=== PATIENT | female | born 1960 | race Caucasian/White ===

== ENCOUNTER → 2016-08-25 | Outpatient (CLI) | payer OTHER | LOC: WI 06:52 | PROVIDERS: ATTEND Physician Assistant | DX: B19.20 Unspecified viral hepatitis C without hepatic coma (principal); Z90.49 Acquired absence of other specified parts of digestive tract | CPT/HCPCS: 76705 ==

== ENCOUNTER 2016-12-27 01:32 | Emergency (ER) | payer OTHER ==
[2016-12-27 02:44] LABS: APPEARANCE,URINE CLEAR; BILIRUBIN,URINE NEGATIVE (NEGATIVE); GLUCOSE, URINE NEGATIVE (NEGATIVE); KETONES,URINE NEGATIVE (NEGATIVE); LEUKOCYTE ESTERASE,URINE MODERATE (NEGATIVE); NITRITE,URINE NEGATIVE (NEGATIVE); PROTEIN,URINE NEGATIVE (NEGATIVE); URINE SPECIFIC GRAVITY 1.002; UROBILINOGEN,URINE NEGATIVE mg/dL (<2.0)
[2016-12-27 02:56] LABS: URINE BARBITURATES SCREEN NEGATIVE; URINE METHADONE SCREEN NEGATIVE; URINE OPIATES LOW NEGATIVE; URINE PHENCYCLIDINE SCREEN NEGATIVE
[2016-12-27 03:32] LABS: ALANINE AMINOTRANSFERASE 45 U/L (9-52); ALBUMIN 3.8 g/dL (3.5-5.0); ALKALINE PHOSPHATASE 53 U/L (38-126); ANION GAP 8 (5-19); ASPARTATE AMINO TRANSFERASE 53 U/L (14-36); BILIRUBIN,DIRECT 0.3 mg/dL (0.0-0.4); BILIRUBIN,TOTAL 1.3 mg/dL (0.2-1.3); BLOOD UREA NITROGEN 11 mg/dL (7-20); CALCIUM 9.2 mg/dL (8.4-10.2); CARBON DIOXIDE 25 mmol/L (22-30); CHLORIDE 110 mmol/L (98-107); CREATININE RESULT 0.81 mg/dL (0.52-1.25); GLUCOSE 95 mg/dL (75-110); POTASSIUM 4.4 mmol/L (3.6-5.0); SODIUM 143.4 mmol/L (137-145); TOTAL PROTEIN 6.7 g/dL (6.3-8.2)
[2016-12-27 03:34] LABS: ALCOHOL < 10 mg/dL (NONE DETECTED)
[2016-12-27] MEDS ORDERED: ACETAMINOPHEN 325 MG TABLET PO ONE (04:12)
[2016-12-27 05:16] LABS: ABSOLUTE EOSINOPHILS # (AUTO) 0.1 10^3/uL (0.0-0.6); ABSOLUTE LYMPHOCYTES (AUTO) 0.6 10^3/uL (0.5-4.7); ABSOLUTE MONOCYTES (AUTO) 0.3 10^3/uL (0.1-1.4); ABSOLUTE NEUT (AUTO) 1.6 10^3/uL (1.7-8.2); BASOPHILS % (AUTO) 0.7 % (0-2); EOSINOPHILS % (AUTO) 4.1 % (0-6); HEMATOCRIT 36.1 % (36.0-47.0); HGB HCT DIFFERENCE -0.1; LYMPHOCYTES % (AUTO) 23.1 % (13-45); MEAN CORPUSCULAR HEMOGLOBIN 28.3 pg (27.0-33.4); MEAN CORPUSCULAR HGB CONC 33.1 g/dL (32.0-36.0); MEAN CORPUSCULAR VOLUME 86 fl (80-97); MONOCYTES % (AUTO) 11.6 % (3-13); RED BLOOD COUNT 4.23 10^6/uL (3.72-5.28); RED CELL DISTRIBUTION WIDTH 16.4 % (11.5-14.0); SEGMENTED NEUTROPHILS % (AUTO) 60.5 % (42-78); WHITE BLOOD COUNT 2.7 10^3/uL (4.0-10.5)
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
--- NOTE | 2016-12-27 08:26 | EKG REPORT ---
SEVERITY:- ABNORMAL ECG - SINUS RHYTHM FIRST DEGREE AV BLOCK : Confirmed by: Fito Hawkins MD 27-Dec-2016 08:25:31
[2016-12-27] MEDS ORDERED: ACETAMINOPHEN 325 MG TABLET PO PRN (10:35)
--- NOTE | 2016-12-27 10:36 | ER Document Report ---
Doctor's Note Notes: 12/27/16 10:35 I have evaluated this patient this am and has no c/o at this time other than chronic leg pain from varicose veins. She is requesting Tylenol. Feels all of their needs are being met and physical exam is normal. Awaiting dispositon per mental health. 12/27/16 16:36 Pt will be transfered to [facility] under Dr. Christianson's care. Pt stable for transfer.
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
[2016-12-27] MEDS ORDERED: OLANZAPINE 5 MG TABLET PO SCH (14:45)
[2016-12-27 21:47] VITALS: BP 167/89
[2016-12-27] MEDS ORDERED: QUETIAPINE FUMARATE 100 MG TABLET PO SCH (22:00)
[2016-12-27] MEDS ORDERED: BENZTROPINE MESYLATE 1 MG TABLET PO SCH (22:00)
== END 2016-12-27 17:23 ==
LOC: ER 01:32
DX: F91.9 Conduct disorder, unspecified (principal); R44.3 Hallucinations, unspecified; F20.9 Schizophrenia, unspecified; R03.0 Elevated blood-pressure reading, without diagnosis of hypertension; Z87.891 Personal history of nicotine dependence; Z90.49 Acquired absence of other specified parts of digestive tract; Z90.710 Acquired absence of both cervix and uterus; Z88.0 Allergy status to penicillin
CPT/HCPCS: 36415; 80053; 80307; 81001; 85025; 87086; 87088; 87186; 93005; 93010; 99285

== ENCOUNTER 2017-06-29 19:09 | Emergency (ER) | payer OTHER ==
--- NOTE | 2017-06-29 20:25 | ER Document Report ---
ED Medical Screen (RME) - General Chief Complaint: Abnormal Lab Results Stated Complaint: IRREGULAR LABS Time Seen by Provider: 06/29/17 20:24 Notes: Patient presents stating that she has had problems the last several months with fatigue. She has recently been diagnosed with splenomegaly. She states yesterday she had some blood drawn and they called her today and told her that her platelets were very low and she needed to go to the emergency department. TRAVEL OUTSIDE OF THE [place] IN LAST 30 DAYS: No - Related Data Allergies/Adverse Reactions: cephalexin monohydrate [From [employer]] Allergy (Mild, Verified 06/29/17 19:11) Penicillins Allergy (Mild, Verified 06/29/17 19:11) Home Medications: Current Home Medications Diphenhydramine HCl [Benadryl 50 mg Capsule] 50 mg PO DAILY 06/29/17 [History] Trazodone HCl 50 mg PO DAILY 06/29/17 [History] Past Medical History - Social History Chew tobacco use (# tins/day): No Frequency of alcohol use: Occasional Drug Abuse: None - Past Medical History Cardiac Medical History: Reports: Hx Hypertension - Borderline Endocrine Medical History: Reports: Hx Diabetes Mellitus Type 2 - Borderline Renal/ Medical History: Denies: Hx Peritoneal Dialysis Past Surgical History: Reports: Hx Cholecystectomy, Hx Hysterectomy, Hx Orthopedic Surgery - Immunizations Hx Diphtheria, Pertussis, Tetanus Vaccination: No Physical Exam - Vital signs Vitals: Temp Pulse Resp BP Pulse Ox 97.4 F 74 19 158/89 H 99 06/29/17 19:16 06/29/17 19:16 06/29/17 19:16 06/29/17 19:16 06/29/17 19:16 Course - Vital Signs Vital signs: Temp Pulse Resp BP Pulse Ox 97.4 F 74 19 158/89 H 99 06/29/17 19:16 06/29/17 19:16 06/29/17 19:16 06/29/17 19:16 06/29/17 19:16
[2017-06-29 20:57] LABS: ABSOLUTE EOSINOPHILS # (AUTO) 0.1 10^3/uL (0.0-0.6); ABSOLUTE LYMPHOCYTES (AUTO) 0.4 10^3/uL (0.5-4.7); ABSOLUTE MONOCYTES (AUTO) 0.3 10^3/uL (0.1-1.4); ABSOLUTE NEUT (AUTO) 1.3 10^3/uL (1.7-8.2); BASOPHILS % (AUTO) 1.2 % (0-2); EOSINOPHILS % (AUTO) 3.9 % (0-6); HEMATOCRIT 38.4 % (36.0-47.0); HEMOGLOBIN 12.9 g/dL (12.0-15.5); MEAN CORPUSCULAR HEMOGLOBIN 28.7 pg (27.0-33.4); MEAN CORPUSCULAR HGB CONC 33.6 g/dL (32.0-36.0); MEAN CORPUSCULAR VOLUME 85 fl (80-97); RED CELL DISTRIBUTION WIDTH 16.5 % (11.5-14.0); SEGMENTED NEUTROPHILS % (AUTO) 61.9 % (42-78); TOTAL CELLS COUNTED % (AUTO) 100 %; WHITE BLOOD COUNT 2.1 10^3/uL (4.0-10.5)
[2017-06-29 21:08] LABS: ALANINE AMINOTRANSFERASE 40 U/L (9-52); ALKALINE PHOSPHATASE 48 U/L (38-126); ANION GAP 8 (5-19); ASPARTATE AMINO TRANSFERASE 42 U/L (14-36); BILIRUBIN,DIRECT 0.2 mg/dL (0.0-0.4); BILIRUBIN,TOTAL 0.9 mg/dL (0.2-1.3); BLOOD UREA NITROGEN 16 mg/dL (7-20); CALCIUM 9.5 mg/dL (8.4-10.2); CARBON DIOXIDE 29 mmol/L (22-30); CHLORIDE 106 mmol/L (98-107); GLUCOSE 122 mg/dL (75-110); SODIUM 142.9 mmol/L (137-145); TOTAL PROTEIN 6.7 g/dL (6.3-8.2)
[2017-06-29 21:29] LABS: PLATELET COUNT 44 10^3/uL (150-450)
--- NOTE | 2017-06-29 22:49 | ER Document Report ---
ED General - General Chief Complaint: Abnormal Lab Results Stated Complaint: IRREGULAR LABS Time Seen by Provider: 06/29/17 20:24 Notes: The patient is a 57-year-old female, past medical history viral hepatitis, prior thrombocytopenia, presents after her new primary care physician karlo blood work for evaluation of splenomegaly yesterday and told her to go to the ER due to low platelets. Patient is feeling fatigued, but denies any active bleeding, petechiae, chest pain, shortness of breath, abdominal pain, nausea or vomiting. TRAVEL OUTSIDE OF THE [place] IN LAST 30 DAYS: No - Related Data Allergies/Adverse Reactions: cephalexin monohydrate [From [employer]] Allergy (Mild, Verified 06/29/17 19:11) Penicillins Allergy (Mild, Verified 06/29/17 19:11) Home Medications: Current Home Medications Diphenhydramine HCl [Benadryl 50 mg Capsule] 50 mg PO DAILY 06/29/17 [History] Trazodone HCl 50 mg PO DAILY 06/29/17 [History] Past Medical History - General Information source: Patient - Social History Smoking Status: Never Smoker Chew tobacco use (# tins/day): No Frequency of alcohol use: Occasional Drug Abuse: None Family History: Reviewed & Not Pertinent Patient has suicidal ideation: No Patient has homicidal ideation: No - Past Medical History Cardiac Medical History: Reports: Hx Hypertension - Borderline Endocrine Medical History: Reports: Hx Diabetes Mellitus Type 2 - Borderline Renal/ Medical History: Denies: Hx Peritoneal Dialysis Past Surgical History: Reports: Hx Cholecystectomy, Hx Hysterectomy, Hx Orthopedic Surgery - Immunizations Hx Diphtheria, Pertussis, Tetanus Vaccination: No Review of Systems - Review of Systems Notes: REVIEW OF SYSTEMS: CONSTITUTIONAL: -fevers, -chills, +fatigue EENT: -eye pain, -difficulty swallowing, -nasal congestion CARDIOVASCULAR:-chest pain, -syncope. RESPIRATORY: -cough, -SOB GASTROINTESTINAL: -abdominal pain, - nausea, -vomiting, -diarrhea GENITOURINARY: -dysuria, -hematuria MUSCULOSKELETAL: -back pain, -neck pain SKIN: -rash or skin lesions. HEMATOLOGIC: -easy bruising or bleeding. LYMPHATIC: -swollen, enlarged glands. NEUROLOGICAL: -altered mental status or loss of consciousness, -headache, - neurologic symptoms PSYCHIATRIC: -anxiety, -depression. ALL OTHER SYSTEMS REVIEWED AND NEGATIVE. Physical Exam - Vital signs Vitals: Temp Pulse Resp BP Pulse Ox 97.4 F 74 19 158/89 H 99 06/29/17 19:16 06/29/17 19:16 06/29/17 19:16 06/29/17 19:16 06/29/17 19:16 - Notes Notes: PHYSICAL EXAMINATION: GENERAL: Well-appearing, well-nourished and in no acute distress. HEAD: Atraumatic, normocephalic. EYES: Pupils equal round and reactive to light, extraocular movements intact, sclera anicteric, conjunctiva are normal. ENT: nares patent, oropharynx clear without exudates. Moist mucous membranes. NECK: Normal range of motion, supple without lymphadenopathy LUNGS: Breath sounds clear to auscultation bilaterally and equal. No wheezes rales or rhonchi. HEART: Regular rate and rhythm without murmurs ABDOMEN: Soft, nontender, normoactive bowel sounds. No guarding, no rebound. Splenomegaly. EXTREMITIES: Normal range of motion, no pitting or edema. No cyanosis. NEUROLOGICAL: Cranial nerves grossly intact. Normal speech, normal gait. Normal sensory and motor exams. PSYCH: Normal mood, normal affect. SKIN: Warm, Dry, normal turgor, no rashes or lesions noted. Course - Re-evaluation Re-evalutation: Patient with platelets of 44, but no active bleeding or bruising. Looking through prior records, her platelets were 47 five months ago. She has liver disease. 06/29/17 22:[address] Cruz (Physician Practice Consultant staff electronic warfare officer) and he recommends no acute intervention at this time and outpatient follow-up. Instructed patient to call tomorrow when office opens to schedule appointment. She understands. - Vital Signs Vital signs: Temp Pulse Resp BP Pulse Ox 97.6 F 71 18 145/82 H 98 06/29/17 23:19 06/29/17 23:19 06/29/17 23:19 06/29/17 23:19 06/29/17 23:19 - Laboratory Result Diagrams: 06/29/17 20:37 06/29/17 20:37 Laboratory results interpreted by me: 06/29/17 06/29/17 20:37 20:37 WBC 2.1 L RDW 16.5 H Plt Count 44 L Absolute Neutrophils 1.3 L Absolute Lymphocytes 0.4 L Glucose 122 H AST 42 H Discharge - Discharge Clinical Impression: Thrombocytopenia Condition: Stable Disposition: HOME, SELF-CARE Additional Instructions: Call Dr. Cruz's office to make an appointment to discuss further management of your low platelets. You do not require any emergent treatment at this time. Your platelets are 44 today. Forms: Elevated Blood Pressure Referrals: RENE DASH MD [Primary Care Provider] - Follow up as needed GUANAKITO CRUZ MD [ACTIVE STAFF] - Follow up as needed
[2017-06-29 23:29] VITALS: BP 145/82
== END 2017-06-29 23:28 | disposition home or self-care (01) ==
LOC: ER 19:09
DX: D69.6 Thrombocytopenia, unspecified (principal); R53.83 Other fatigue; Z79.899 Other long term (current) drug therapy
CPT/HCPCS: 36415; 80053; 85025; 99283